=== PATIENT | male | born 1965 | race Caucasian/White ===

== ENCOUNTER 2019-12-09 16:14 | Emergency (ER) | payer OTHER ==
[~2019-12-09] VITALS: Ht 177.8 cm; Wt 80.3 kg
[2019-12-09] MEDS ORDERED: LIDOCAINE-MPF 1%, 5ML ONE (16:46)
--- NOTE | 2019-12-09 17:00 | NUR ---
PT CAME IN WITH A LAC TO THE LEFT WRIST AFTER AN ANGLE F[employer]STRU[employer] WHEEL EXPLODED. PT IS [id number]. VITALS STABLE. REPORTS PAIN OF 2/10
[2019-12-09] MEDS ORDERED: DIPH,PERTUSS(ACELL),TET VAC/PF 0.5 ML IM-VACC ONE (17:30)
[2019-12-09 17:45] VITALS: BP 144/92
== END 2019-12-09 18:02 | disposition home or self-care (01) ==
LOC: ED 16:33
DX: S61.412A Laceration without foreign body of left hand, initial encounter (principal); X58.XXXA Exposure to other specified factors, initial encounter; Y93.89 Activity, other specified; Y92.009 Unspecified place in unspecified non-institutional (private) residence as the place of occurrence of the external cause; Y99.8 Other external cause status
CPT/HCPCS: 12042; 90471; 90715